=== PATIENT | female | born 1940 | race Caucasian/White ===

== ENCOUNTER 2019-06-26 10:29 | Emergency (ER) | payer MEDICARE, BC ==
[~2019-06-26] VITALS: Ht 162.6 cm; Wt 55.8 kg
[~2019-06-26 10:29] MED LIST: ASPI-974 PO; ATI0.5T PO; CITA20TA2 PO; COL100C PO; CYCL-1 PO; HEPA500017 SQ; HYDR-3972 PO; IBUP-24 PO; METO25TA6 PO; OMEP40CA13 PO; SUCR1ORA2 PO; TEMA30CA5 PO
[2019-06-26 11:12] LABS: BASOPHILS % (AUTO) 0.9 % (0-1); EOSINOPHILS # (AUTO) 0.1 X10'3 (0-0.9); EOSINOPHILS % (AUTO) 1.7 % (0-6); HEMATOCRIT 38.4 % (35.0-45.0); HEMOGLOBIN 13.3 g/dl (12.0-16.0); LYMPHOCYTES # (AUTO) 1.3 X10'3 (1.1-4.8); MEAN CORPUSCULAR HEMOGLOBIN 33.1 PG (27.0-31.0); MEAN CORPUSCULAR HGB CONC 34.5 g/dL (33.0-36.5); MEAN CORPUSCULAR VOLUME 95.9 FL (78-98); MEAN PLATELET VOLUME 6.9 FL (7.4-10.4); MONOCYTES # (AUTO) 0.2 X10'3 (0-0.9); MONOCYTES % (AUTO) 5.1 % (2-12); NEUTROPHILS # (AUTO) 2.7 X10'3 (1.8-7.7); NEUTROPHILS % (AUTO) 63.3 % (42-75); PLATELET COUNT 285 X10'3 (140-440); RED CELL DISTRIBUTION WIDTH 12.9 % (11.5-14.5); WHITE BLOOD COUNT 4.3 X10'3 (4.5-11.0)
[2019-06-26 11:25] LABS: ALANINE AMINOTRANSFERASE 20 U/L (12-78); ALBUMIN 3.3 G/DL (3.4-5.0); ALBUMIN/GLOBULIN RATIO 0.9 (1.1-1.5); ALKALINE PHOSPHATASE 71 IU/L (46-116); ANION GAP 9 (8-16); ASPARTATE AMINO TRANSFERASE 21 U/L (10-37); BILIRUBIN,TOTAL 0.4 MG/DL (0.1-1.0); BLOOD UREA NITROGEN 19 MG/DL (7-18); BUN/CREATININE RATIO 18.6 (6.6-38.0); CALCIUM 8.6 MG/DL (8.5-10.1); CHLORIDE 110 MMOL/L (99-107); CREATININE 1.02 MG/DL (0.40-0.90); GLUCOSE 113 MG/DL (70-104); POTASSIUM 3.3 MMOL/L (3.5-5.1); SODIUM 145 MMOL/L (135-145); TOTAL CARBON DIOXIDE 26.2 MMOL/L (24-32); TOTAL PROTEIN 6.9 G/DL (6.4-8.2); eGFR 52 ML/MIN
--- NOTE | 2019-06-26 11:37 | NUR ---
Pt up to restroom to provide urine sample.
[2019-06-26 12:03] VITALS: BP 113/61
[2019-06-26] MEDS ORDERED: LIDOcaine 5% patch TP SCH (12:07)
[2019-06-26 12:16] LABS: CLARITY,URINE CLEAR (Clear); COLOR,URINE YELLOW (Yellow); GLUCOSE, URINE NEGATIVE (Neg); KETONES,URINE NEGATIVE (Neg); LEUKOCYTE ESTERASE ,URINE TRACE (Neg); NITRITES, URINE NEGATIVE (Neg); OCCULT BLOOD,URINE LARGE (Neg); PROTEIN,URINE TRACE mg/dl (Neg); UROBILINOGEN,URINE 0.2 E.U/dL (0.2-1.0)
[2019-06-26 12:22] LABS: UA COLLECTION TYPE CLN CATCH MIDSTREAM
[2019-06-26 12:23] LABS: BACTERIA,URINE FEW /HPF (Neg); MUCUS STRANDS MODERATE /LPF (Neg); RBC,URINE 20-50 /HPF (0-2); SQUAMOUS EPITHELIAL CELL,UR FEW /LPF (FEW)
[2019-06-26] MEDS ORDERED: CEPH500C5 PO (12:33)
[2019-06-26] MEDS ORDERED: cephalexin 250mg capsule PO ONE (12:35)
== END 2019-06-26 13:02 | disposition home or self-care (01) ==
LOC: ER 10:29
DX: N39.0 Urinary tract infection, site not specified (principal); R31.9 Hematuria, unspecified; K21.9 Gastro-esophageal reflux disease without esophagitis; G89.29 Other chronic pain; F32.9 Major depressive disorder, single episode, unspecified; Z90.49 Acquired absence of other specified parts of digestive tract; Z90.710 Acquired absence of both cervix and uterus; Z98.890 Other specified postprocedural states; Z88.0 Allergy status to penicillin; Z79.2 Long term (current) use of antibiotics; Z79.899 Other long term (current) drug therapy; Z79.82 Long term (current) use of aspirin
CPT/HCPCS: 36415; 80053; 81001; 85025; 87088; 99283

== ENCOUNTER 2020-08-12 16:43 | Emergency (ER) | payer MEDICARE, BC ==
[~2020-08-12] VITALS: Ht 162.6 cm; Wt 52.7 kg
[2020-08-12 17:35] LABS: CLARITY,URINE CLOUDY (Clear); COLOR,URINE YELLOW (Yellow); GLUCOSE, URINE NEGATIVE (Neg); KETONES,URINE TRACE mg/dl (Neg); LEUKOCYTE ESTERASE ,URINE SMALL (Neg); NITRITES, URINE NEGATIVE (Neg); OCCULT BLOOD,URINE LARGE (Neg); PH,URINE 5.5 (4.8-8.0); PROTEIN,URINE 100 mg/dl (Neg); UROBILINOGEN,URINE 0.2 E.U/dL (0.2-1.0)
[2020-08-12 17:42] LABS: UA COLLECTION TYPE CLN CATCH MIDSTREAM
[2020-08-12 18:10] LABS: AMORPHOUS URATES 1+; BACTERIA,URINE FEW /HPF (Neg); RBC,URINE 50-100 /HPF (0-2); SQUAMOUS EPITHELIAL CELL,UR FEW /LPF (FEW)
[2020-08-12] MEDS ORDERED: CEPH250T PO (18:18)
[2020-08-12 18:29] VITALS: BP 117/67
== END 2020-08-12 18:35 | disposition home or self-care (01) ==
LOC: ER 16:44
DX: N39.0 Urinary tract infection, site not specified (principal); M54.9 Dorsalgia, unspecified; K21.9 Gastro-esophageal reflux disease without esophagitis; G89.29 Other chronic pain; F32.9 Major depressive disorder, single episode, unspecified; Z90.49 Acquired absence of other specified parts of digestive tract; Z90.710 Acquired absence of both cervix and uterus; Z98.890 Other specified postprocedural states; Z88.1 Allergy status to other antibiotic agents; Z88.8 Allergy status to other drugs, medicaments and biological substances; Z79.899 Other long term (current) drug therapy; Z79.82 Long term (current) use of aspirin
CPT/HCPCS: 81001; 87088; 99283

== ENCOUNTER 2021-05-07 12:22 | Emergency (ER) | payer MEDICARE ==
[~2021-05-07] VITALS: Ht 162.6 cm; Wt 51.8 kg
[~2021-05-07 12:22] MED LIST changes: +LOP25T PO; -METO25TA6 PO; -OMEP40CA13 PO; +OMEP40CA21 PO
[2021-05-07 13:09] LABS: BASOPHILS % (AUTO) 0.3 % (0-1); EOSINOPHILS % (AUTO) 0.2 % (0-6); HEMOGLOBIN 12.6 g/dl (12.0-16.0); LYMPHOCYTES # (AUTO) 0.6 X10'3 (1.1-4.8); LYMPHOCYTES % (AUTO) 6.7 % (21-51); MEAN CORPUSCULAR HEMOGLOBIN 32.2 PG (27.0-31.0); MEAN CORPUSCULAR HGB CONC 34.1 g/dL (33.0-36.5); MEAN CORPUSCULAR VOLUME 94.4 FL (78-98); MEAN PLATELET VOLUME 7.1 FL (7.4-10.4); MONOCYTES # (AUTO) 0.4 X10'3 (0-0.9); MONOCYTES % (AUTO) 3.7 % (2-12); NEUTROPHILS # (AUTO) 8.4 X10'3 (1.8-7.7); NEUTROPHILS % (AUTO) 89.1 % (42-75); PLATELET COUNT 301 X10'3 (140-440); RED BLOOD COUNT 3.92 X10'6 (4.20-5.60); RED CELL DISTRIBUTION WIDTH 12.9 % (11.5-14.5); WHITE BLOOD COUNT 9.5 X10'3 (4.5-11.0)
[2021-05-07 13:13] LABS: ALANINE AMINOTRANSFERASE 19 U/L (12-78); ALBUMIN 3.4 G/DL (3.4-5.0); ALBUMIN/GLOBULIN RATIO 0.9 (1.1-1.5); ALKALINE PHOSPHATASE 65 IU/L (46-116); ANION GAP 12 (8-16); ASPARTATE AMINO TRANSFERASE 17 U/L (10-37); BILIRUBIN,TOTAL 0.6 MG/DL (0.1-1.0); BLOOD UREA NITROGEN 17 MG/DL (7-18); BUN/CREATININE RATIO 13.7 (6.6-38.0); CALCIUM 10.5 MG/DL (8.5-10.1); CHLORIDE 102 MMOL/L (99-107); CREATININE 1.24 MG/DL (0.40-0.90); GLUCOSE 110 MG/DL (70-104); POTASSIUM 3.7 MMOL/L (3.5-5.1); SODIUM 139 MMOL/L (135-145); TOTAL CARBON DIOXIDE 25.3 MMOL/L (24-32); TOTAL PROTEIN 7.2 G/DL (6.4-8.2); eGFR 41 ML/MIN
[2021-05-07 14:44] LABS: D-DIMER 0.65 MG/L FEU (0-0.50)
[2021-05-07] MEDS ORDERED: morphine 5 MG/ML injection IM ONE (15:40)
[2021-05-07] MEDS ORDERED: morphine 2 MG/ML inj. syringe IM ONE (15:45)
[2021-05-07 16:13] VITALS: BP 128/54
[2021-05-07] MEDS ORDERED: HYDR-3972 PO ×3 (16:36→17:02)
== END 2021-05-07 16:32 | disposition home or self-care (01) ==
LOC: ER 12:22
DX: R07.89 Other chest pain (principal); K21.9 Gastro-esophageal reflux disease without esophagitis; M19.90 Unspecified osteoarthritis, unspecified site; G89.29 Other chronic pain; Z88.1 Allergy status to other antibiotic agents; Z79.01 Long term (current) use of anticoagulants; Z79.899 Other long term (current) drug therapy; Z79.82 Long term (current) use of aspirin; Z90.89 Acquired absence of other organs; Z90.710 Acquired absence of both cervix and uterus
CPT/HCPCS: 36415; 71045; 80053; 83880; 84484; 85025; 85379; 93005; 96372; 99285; J2270

== ENCOUNTER 2021-05-10 13:40 | Emergency (ER) | payer MEDICARE ==
[~2021-05-10] VITALS: Ht 162.6 cm; Wt 51.9 kg
[2021-05-10 14:28] VITALS: BP 110/55
[2021-05-10] MEDS ORDERED: LIDO700A32 TOP ×2 (15:49→15:51)
[2021-05-10] MEDS ORDERED: DICL20GE TOP (15:50)
== END 2021-05-10 20:53 | disposition left against medical advice (07) ==
LOC: ER 13:40
DX: R07.89 Other chest pain (principal); R05.9 Cough, unspecified; K21.9 Gastro-esophageal reflux disease without esophagitis; M19.90 Unspecified osteoarthritis, unspecified site; G89.29 Other chronic pain; F32.9 Major depressive disorder, single episode, unspecified; Z90.89 Acquired absence of other organs; Z90.710 Acquired absence of both cervix and uterus; Z98.890 Other specified postprocedural states; Z88.1 Allergy status to other antibiotic agents; Z79.899 Other long term (current) drug therapy
CPT/HCPCS: 71045; 93005; 99283

== ENCOUNTER 2021-05-14 14:43 | Emergency (ER) | payer MEDICARE ==
[~2021-05-14] VITALS: Ht 162.6 cm; Wt 50.0 kg
[~2021-05-14 14:43] MED LIST changes: +DICL20GE TOP; +LIDO700A32 TOP
[2021-05-14 15:47] VITALS: BP 127/76
[2021-05-14 16:33] LABS: BASOPHILS # (AUTO) 0.1 X10'3 (0-0.2); BASOPHILS % (AUTO) 0.8 % (0-1); EOSINOPHILS # (AUTO) 0.1 X10'3 (0-0.9); EOSINOPHILS % (AUTO) 0.4 % (0-6); HEMOGLOBIN 10.7 g/dl (12.0-16.0); LYMPHOCYTES # (AUTO) 0.4 X10'3 (1.1-4.8); LYMPHOCYTES % (AUTO) 2.6 % (21-51); MEAN CORPUSCULAR HEMOGLOBIN 31.8 PG (27.0-31.0); MEAN CORPUSCULAR HGB CONC 34.4 g/dL (33.0-36.5); MEAN CORPUSCULAR VOLUME 92.5 FL (78-98); MEAN PLATELET VOLUME 6.9 FL (7.4-10.4); MONOCYTES # (AUTO) 0.7 X10'3 (0-0.9); MONOCYTES % (AUTO) 4.3 % (2-12); NEUTROPHILS % (AUTO) 91.9 % (42-75); PLATELET COUNT 446 X10'3 (140-440); RED BLOOD COUNT 3.35 X10'6 (4.20-5.60); RED CELL DISTRIBUTION WIDTH 12.8 % (11.5-14.5); WHITE BLOOD COUNT 15.2 X10'3 (4.5-11.0)
[2021-05-14 16:41] LABS: ALANINE AMINOTRANSFERASE 24 U/L (12-78); ALBUMIN 2.4 G/DL (3.4-5.0); ALBUMIN/GLOBULIN RATIO 0.4 (1.1-1.5); ALKALINE PHOSPHATASE 90 IU/L (46-116); ANION GAP 12 (8-16); ASPARTATE AMINO TRANSFERASE 37 U/L (10-37); BILIRUBIN,TOTAL 0.7 MG/DL (0.1-1.0); BLOOD UREA NITROGEN 18 MG/DL (7-18); BUN/CREATININE RATIO 16.5 (6.6-38.0); CHLORIDE 98 MMOL/L (99-107); CREATININE 1.09 MG/DL (0.40-0.90); GLUCOSE 126 MG/DL (70-104); SODIUM 137 MMOL/L (135-145); TOTAL CARBON DIOXIDE 27.4 MMOL/L (24-32); TOTAL PROTEIN 7.8 G/DL (6.4-8.2); eGFR 48 ML/MIN
[2021-05-14] MEDS ORDERED: iohexol 350MG/ML 100ml bottle IV ONE (17:30)
== END 2021-05-14 19:40 | disposition left against medical advice (07) ==
LOC: ER 14:44
DX: R07.89 Other chest pain (principal); Z20.822 Contact with and (suspected) exposure to COVID-19; M25.512 Pain in left shoulder; R05.9 Cough, unspecified; K21.9 Gastro-esophageal reflux disease without esophagitis; M19.90 Unspecified osteoarthritis, unspecified site; G89.29 Other chronic pain; Z90.49 Acquired absence of other specified parts of digestive tract; Z90.710 Acquired absence of both cervix and uterus; Z88.1 Allergy status to other antibiotic agents; Z79.899 Other long term (current) drug therapy; Z79.82 Long term (current) use of aspirin
CPT/HCPCS: 71045; 80053; 83735; 83880; 84484; 85025; 87635; 93005; 99285; C9803; Q9967

== ENCOUNTER 2021-12-18 18:43 | Inpatient (IN) | payer MEDICARE, OTHER ==
[~2021-12-18] VITALS: Ht 162.6 cm; Wt 48.2 kg
[2021-12-18 19:56] LABS: BASOPHILS % (AUTO) 0.5 % (0-1); HEMATOCRIT 35.4 % (35.0-45.0); HEMOGLOBIN 12.1 g/dl (12.0-16.0); LYMPHOCYTES # (AUTO) 1.1 X10'3 (1.1-4.8); MEAN CORPUSCULAR HGB CONC 34.2 g/dL (33.0-36.5); MEAN CORPUSCULAR VOLUME 96.5 FL (78-98); MEAN PLATELET VOLUME 7.7 FL (7.4-10.4); MONOCYTES # (AUTO) 0.2 X10'3 (0-0.9); MONOCYTES % (AUTO) 6.1 % (2-12); NEUTROPHILS # (AUTO) 2.4 X10'3 (1.8-7.7); NEUTROPHILS % (AUTO) 63.4 % (42-75); PLATELET COUNT 247 X10'3 (140-440); RED BLOOD COUNT 3.67 X10'6 (4.20-5.60); RED CELL DISTRIBUTION WIDTH 13.3 % (11.5-14.5); WHITE BLOOD COUNT 3.8 X10'3 (4.5-11.0)
[2021-12-18] MEDS ORDERED: acetaminophen 325mg tablet PO ONE (20:00)
[2021-12-18 20:03] LABS: ALANINE AMINOTRANSFERASE 30 U/L (12-78); ALBUMIN 3.3 G/DL (3.4-5.0); ALBUMIN/GLOBULIN RATIO 0.8 (1.1-1.5); ALKALINE PHOSPHATASE 63 IU/L (46-116); ANION GAP 11 (8-16); ASPARTATE AMINO TRANSFERASE 24 U/L (10-37); BILIRUBIN,TOTAL 0.3 MG/DL (0.1-1.0); BLOOD UREA NITROGEN 24 MG/DL (7-18); BUN/CREATININE RATIO 20.5 (6.6-38.0); CALCIUM 8.3 MG/DL (8.5-10.1); CHLORIDE 108 MMOL/L (99-107); CREATININE 1.17 MG/DL (0.40-0.90); GLUCOSE 154 MG/DL (70-104); SODIUM 143 MMOL/L (135-145); TOTAL CARBON DIOXIDE 23.8 MMOL/L (24-32); TOTAL PROTEIN 7.3 G/DL (6.4-8.2); eGFR 44 ML/MIN
[2021-12-18 20:08] LABS: POTASSIUM 2.8 MMOL/L (3.5-5.1)
[2021-12-18] MEDS ORDERED: POTASSIUM BICARB 20meq eff tab 20 MEQ TABLET.EFF PO ONE ×2 (20:15→23:00)
--- NOTE | 2021-12-18 20:18 | NUR ---
Dr Neri notified of critical K+ result of 2.8
[2021-12-19] VITALS (19 sets, daily range): BP systolic 109–134; BP diastolic 42–65
[2021-12-19] MEDS ORDERED: mag hydrox/Alum hydrox/simeth 30ml oral suspension PO PRN (02:35)
[2021-12-19] MEDS ORDERED: diphenhydrAMINE 50 mg/ml inj IV PRN (02:35)
[2021-12-19] MEDS ORDERED: acetaminophen 325mg tablet PO PRN ×2 (02:35)
[2021-12-19] MEDS: normal saline 1000ml 1,000 ML IV SCH ×2 (02:35→22:15)
[2021-12-19] MEDS ORDERED: HYDROmorphone inj. 0.5 MG/0.5 ML DISP.SYRIN IV PRN (02:35)
[2021-12-19] MEDS ORDERED: morphine 2 MG/ML inj. syringe IV PRN ×3 (02:35→13:50)
[2021-12-19] MEDS ORDERED: magnesium hydroxide 30ml (MOM) UD suspension PO PRN (02:35)
[2021-12-19] MEDS ORDERED: diphenhydrAMINE 25mg capsule PO PRN (02:35)
[2021-12-19] MEDS ORDERED: ondansetron 4mg rapidly disintigrating tab PO PRN (02:35)
[2021-12-19] MEDS ORDERED: bisacodyl 10mg suppository rectal RC PRN (02:35)
[2021-12-19] MEDS ORDERED: ondansetron/PF 4mg/2ml inj IV PRN ×2 (02:35→13:50)
[2021-12-19] MEDS ORDERED: potassium Cl 40MEQ/1/2NS 520ml 520 ML IV PRN ×2 (02:40)
[2021-12-19] MEDS ORDERED: potassium Cl 20 mEq SR tablet PO PRN ×2 (02:40)
[2021-12-19 03:06] LABS: HEMOGLOBIN A1C 4.8 % (4.5-6.2)
[2021-12-19 03:11] LABS: PHOSPHORUS 2.9 MG/DL (2.3-4.5)
[2021-12-19] MEDS ORDERED: CITA40TA30 PO (04:06)
[2021-12-19] MEDS ORDERED: DOCU100C40 PO (04:11)
[2021-12-19] MEDS: pantoprazole 40mg Tablet.DR PO SCH (07:30)
[2021-12-19 07:57] LABS: APTT 24 SECONDS (22-32)
[2021-12-19] MEDS: docusate sod 100mg capsule PO SCH ×2 (08:00→19:41)
[2021-12-19] MEDS: K and/or MAG REPLACEMENT MC SCH ×2 (08:00→20:00)
[2021-12-19] MEDS ORDERED: ringers solution, lacted 1,000 ML IV SCH (13:50)
[2021-12-19] MEDS ORDERED: labetalol 20mg/4ml (5mg/ml) syringe IV PRN (13:50)
[2021-12-19] MEDS ORDERED: fentaNYL/PF 50MCG/1 ML 2ML syringe IV PRN ×2 (13:50)
[2021-12-19] MEDS ORDERED: morphine 4 MG/ML inj SYRINge IV PRN (13:50)
[2021-12-19] MEDS ORDERED: hydrALAZINE 20mg/ml inj. IV PRN (13:50)
[2021-12-19] MEDS ORDERED: vancomycin 1,000mg inj ONE ×2 (13:57→15:09)
[2021-12-19] MEDS ORDERED: desflurane 240ml liquid inh. IH ONE (14:21)
[2021-12-19] MEDS ORDERED: ceFAZolin 1000mg inj ONE (14:30)
[2021-12-19] MEDS ORDERED: propofol inj 20 ML IV ONE (14:40)
[2021-12-19] MEDS ORDERED: ondansetron/PF 4mg/2ml inj ONE (14:40)
[2021-12-19] MEDS ORDERED: fentaNYL/PF 50MCG/1 ML 2ML syringe ONE (14:40)
[2021-12-19] MEDS ORDERED: dexamethasone sod phosphate 4mg/ml inj. ONE (14:42)
[2021-12-19] MEDS ORDERED: succinylcholine 20mg/ml inj IV ONE (15:07)
[2021-12-19] MEDS ORDERED: hydrALAZINE 20mg/ml inj. IV ONE (15:08)
--- NOTE | 2021-12-19 15:37 | NUR ---
Received from OR via HOSPITAL BED, accompanied by Anesthesiologist and report given by BRYANNA Anesthesiologist. PT WAKING UP. VSS. PT PRESENTS WITH PIV 20G RIGHT AC, RIGHT HIP DARRIUS DRESSING C/D/I WITH KNEE IMMOBILIZER, RIGHT STRONG DISTAL PULSE. Addendum: 12/19/21 at 1617 by Jose Manuel Lynne RN Amended: Links added.
--- NOTE | 2021-12-19 17:07 | NUR ---
PATIENT HAS MET ALL CRITERIA FOR TRANSFER TO ORTHO FLOOR. VSS. DRESSINGS INTACT. BED LOW, CALL LIGHT PRESENT AND 2 RAILS UP. RN PRESENT TO ACCEPT CARE OF PATIENT AND REPORT HAS BEEN CALLED. ALL QUESTIONS ANSWERED TO ACCEPTING RN. Addendum: 12/19/21 at 1731 by Jose Manuel Lynne RN Amended: Links added.
--- NOTE | 2021-12-19 17:50 | NUR ---
Received to room 4020A. Awakens easily, at bedside. Resp even & unlabored. Post op vs started.
[2021-12-19] MEDS ORDERED: enoxaparin 40mg/0.4ml syringe SUBCUT SCH (20:00)
[2021-12-19] MEDS: HYDROcodone/acetaminophen 5mg/325mg tablet PO PRN (22:12)
[2021-12-19] MEDS: cefazolin/dext.iso 2gm/100ml 100 ML IV SCH (23:58)
[2021-12-20 02:00] VITALS: BP 117/48
[2021-12-20] MEDS: HYDROcodone/acetaminophen 10/325mg tab PO PRN ×2 (05:15→20:26)
[2021-12-20 06:00] VITALS: BP 131/47
--- NOTE | 2021-12-20 06:15 | NUR ---
Problems reprioritized. Patient report given, questions answered & plan of care reviewed with LINDA CARLSON.
[2021-12-20 06:26] LABS: BASOPHILS % (AUTO) 0.1 % (0-1); EOSINOPHILS % (AUTO) 0.1 % (0-6); HEMATOCRIT 30.4 % (35.0-45.0); HEMOGLOBIN 10.4 g/dl (12.0-16.0); LYMPHOCYTES # (AUTO) 0.5 X10'3 (1.1-4.8); LYMPHOCYTES % (AUTO) 6.8 % (21-51); MEAN CORPUSCULAR HEMOGLOBIN 33.6 PG (27.0-31.0); MEAN CORPUSCULAR HGB CONC 34.3 g/dL (33.0-36.5); MEAN CORPUSCULAR VOLUME 98.1 FL (78-98); MEAN PLATELET VOLUME 7.9 FL (7.4-10.4); MONOCYTES # (AUTO) 0.3 X10'3 (0-0.9); NEUTROPHILS # (AUTO) 6.1 X10'3 (1.8-7.7); PLATELET COUNT 241 X10'3 (140-440); RED CELL DISTRIBUTION WIDTH 13.1 % (11.5-14.5); WHITE BLOOD COUNT 6.9 X10'3 (4.5-11.0)
[2021-12-20 06:46] LABS: ALANINE AMINOTRANSFERASE 19 U/L (12-78); ALBUMIN 2.7 G/DL (3.4-5.0); ALBUMIN/GLOBULIN RATIO 0.7 (1.1-1.5); ALKALINE PHOSPHATASE 53 IU/L (46-116); ANION GAP 13 (8-16); ASPARTATE AMINO TRANSFERASE 34 U/L (10-37); BILIRUBIN,TOTAL 0.3 MG/DL (0.1-1.0); BLOOD UREA NITROGEN 24 MG/DL (7-18); BUN/CREATININE RATIO 20.2 (6.6-38.0); CALCIUM 8.4 MG/DL (8.5-10.1); CHLORIDE 106 MMOL/L (99-107); CREATININE 1.19 MG/DL (0.40-0.90); GLUCOSE 171 MG/DL (70-104); POTASSIUM 4.6 MMOL/L (3.5-5.1); SODIUM 142 MMOL/L (135-145); TOTAL CARBON DIOXIDE 22.6 MMOL/L (24-32); TOTAL PROTEIN 6.7 G/DL (6.4-8.2); eGFR 43 ML/MIN
[2021-12-20] MEDS: cefazolin/dext.iso 2gm/100ml 100 ML IV SCH (07:43)
[2021-12-20] MEDS: pantoprazole 40mg Tablet.DR PO SCH (07:43)
[2021-12-20] MEDS: docusate sod 100mg capsule PO SCH ×3 (07:43→20:26)
--- NOTE | 2021-12-20 07:49 | NUR ---
calorie count consult: No mention of calorie count in MD note and confirmed w/ RN that no calorie count is being done. Pt was documented w/ malnutrition per MD note and has a BMI of 18, using non-scaled wt, assume that is reason for consult. Pt denied any recent wt loss or decrease in appetite per MST. Appears WD/WN per MD note. Non-scaled wt hx is consistent dating back to 2020. No edema noted. Pt does not meet minimum criteria for malnutrition. Addendum: 12/20/21 at [address] Amended: Links added.
[2021-12-20] MEDS: K and/or MAG REPLACEMENT MC SCH ×2 (08:00→20:00)
[2021-12-20 10:00] VITALS: BP 119/38
[2021-12-20 14:00] VITALS: BP 154/57
[2021-12-20] MEDS ORDERED: aspirin 325mg tablet PO PRN (15:10)
[2021-12-20] MEDS ORDERED: enoxaparin 30mg/0.3ml syringe SUBCUT SCH (16:02)
[2021-12-20] MEDS: HYDROcodone/acetaminophen 5mg/325mg tablet PO PRN (16:33)
[2021-12-20 18:00] VITALS: BP 152/59
[2021-12-20 22:00] VITALS: BP 118/58
[2021-12-21] MEDS: normal saline 1000ml 1,000 ML IV SCH (02:35)
[2021-12-21] MEDS: HYDROcodone/acetaminophen 10/325mg tab PO PRN ×2 (05:32→11:22)
[2021-12-21 06:00] VITALS: BP 111/57
[2021-12-21 06:01] LABS: HEMOGLOBIN 9.8 g/dl (12.0-16.0)
[2021-12-21 06:04] LABS: BASOPHILS % (AUTO) 0.2 % (0-1); EOSINOPHILS # (AUTO) 0.2 X10'3 (0-0.9); EOSINOPHILS % (AUTO) 2.7 % (0-6); LYMPHOCYTES # (AUTO) 0.8 X10'3 (1.1-4.8); LYMPHOCYTES % (AUTO) 10.1 % (21-51); MEAN CORPUSCULAR VOLUME 97.3 FL (78-98); MEAN PLATELET VOLUME 7.3 FL (7.4-10.4); MONOCYTES # (AUTO) 0.4 X10'3 (0-0.9); NEUTROPHILS # (AUTO) 6.1 X10'3 (1.8-7.7); PLATELET COUNT 214 X10'3 (140-440); RED BLOOD COUNT 2.88 X10'6 (4.20-5.60); RED CELL DISTRIBUTION WIDTH 13.2 % (11.5-14.5); WHITE BLOOD COUNT 7.5 X10'3 (4.5-11.0)
[2021-12-21 06:11] LABS: ALANINE AMINOTRANSFERASE 13 U/L (12-78); ALBUMIN 2.6 G/DL (3.4-5.0); ALBUMIN/GLOBULIN RATIO 0.7 (1.1-1.5); ALKALINE PHOSPHATASE 51 IU/L (46-116); ANION GAP 7 (8-16); ASPARTATE AMINO TRANSFERASE 41 U/L (10-37); BILIRUBIN,TOTAL 0.5 MG/DL (0.1-1.0); BLOOD UREA NITROGEN 22 MG/DL (7-18); CALCIUM 8.3 MG/DL (8.5-10.1); CHLORIDE 106 MMOL/L (99-107); CREATININE 0.88 MG/DL (0.40-0.90); GLUCOSE 118 MG/DL (70-104); POTASSIUM 4.4 MMOL/L (3.5-5.1); SODIUM 139 MMOL/L (135-145); TOTAL CARBON DIOXIDE 26.3 MMOL/L (24-32); TOTAL PROTEIN 6.6 G/DL (6.4-8.2); eGFR 61 ML/MIN
--- NOTE | 2021-12-21 06:45 | NUR ---
Assumed care of pt. Pt reported chest pain not radiating to arms or anywhere else. Pt reported she has frequent heartburn. Maalox given for heartburn. EKG done and NSR. Dr. Júnior Burgos in to eval and no other orders obtained.
--- NOTE | 2021-12-21 06:52 | NUR ---
reported to days. noted pt resting w/o distress. up to BR with 1 assist. awaiting rehab placement.
[2021-12-21] MEDS: K and/or MAG REPLACEMENT MC SCH (07:41)
[2021-12-21] MEDS: pantoprazole 40mg Tablet.DR PO SCH (07:49)
[2021-12-21] MEDS: docusate sod 100mg capsule PO SCH ×2 (07:50)
[2021-12-21] MEDS ORDERED: citalopram 20mg tablet PO SCH (08:00)
--- NOTE | 2021-12-21 09:02 | NUR ---
Pt reported heartburn/chest pain resloved at this time. No acute distress noted.
[2021-12-21 10:00] VITALS: BP 134/52
== END 2021-12-21 14:10 | DRG 522 ==
LOC: ER 18:44 → ED HOLD 12-19 02:39 → ORTHO 4S 12-19 17:17
PROVIDERS: ADMIT Family Medicine; ATTEND Internal Medicine
PROC: 0SRR01A Replacement of Right Hip Joint, Femoral Surface with Metal Synthetic Substitute, Uncemented, Open Approach (ICD-10-PCS; principal; 2021-12-19 14:21)
DX: S72.011A Unspecified intracapsular fracture of right femur, initial encounter for closed fracture (principal); I13.0 Hypertensive heart and chronic kidney disease with heart failure and stage 1 through stage 4 chronic kidney disease, or unspecified chronic kidney disease; I50.32 Chronic diastolic (congestive) heart failure; N17.9 Acute kidney failure, unspecified; D62 Acute posthemorrhagic anemia; E46 Unspecified protein-calorie malnutrition; Z68.1 Body mass index [BMI] 19.9 or less, adult; N18.9 Chronic kidney disease, unspecified; S40.012A Contusion of left shoulder, initial encounter; W01.0XXA Fall on same level from slipping, tripping and stumbling without subsequent striking against object, initial encounter; E78.5 Hyperlipidemia, unspecified; G89.4 Chronic pain syndrome; K76.89 Other specified diseases of liver; Z20.822 Contact with and (suspected) exposure to COVID-19; E87.6 Hypokalemia; K21.9 Gastro-esophageal reflux disease without esophagitis; F32.A Depression, unspecified; M19.90 Unspecified osteoarthritis, unspecified site; M54.50 Low back pain, unspecified; K44.9 Diaphragmatic hernia without obstruction or gangrene; Z79.82 Long term (current) use of aspirin; Z83.3 Family history of diabetes mellitus; Z79.899 Other long term (current) drug therapy; Z82.49 Family history of ischemic heart disease and other diseases of the circulatory system; Z87.442 Personal history of urinary calculi; Z90.49 Acquired absence of other specified parts of digestive tract; Z90.710 Acquired absence of both cervix and uterus; Y93.89 Activity, other specified; Y92.511 Restaurant or cafe as the place of occurrence of the external cause; Y99.8 Other external cause status; Z88.1 Allergy status to other antibiotic agents; Z87.440 Personal history of urinary (tract) infections
CPT/HCPCS: 36415; 71045; 72170; 73030; 73502; 73700; 80053; 83036; 83735; 83880; 84100; 84484; 85025; 85610; 85730; 87081; 87811; 93005; 97110; 97162; 99285; A4615; A6454; A7000; A9272; C1776; G0378; J0330; J0360; J0690; J1100; J1650; J2270; J2405; J2704; J3010; J3370; J7030; J7120